=== PATIENT | male | born 1955 | race Caucasian/White ===

== ENCOUNTER 2018-08-10 12:38 | Outpatient (CLI) | payer OTHER ==
--- NOTE | 2018-08-10 13:12 | RAD ---
CHEST 2 VIEWS: Date: 08/10/18 HISTORY: Flank pain. COMPARISON: None. FINDINGS: There are linear markings in both lung bases, felt to be atelectatic change. No pneumothorax. No effu anant. IMPRESSION: 1. No acute intrathoracic abnormality. 2. Subtle lucency along the right lateral margin of the hepatic shadow. This may reflect ascites. POS: [facility]
--- NOTE | 2018-08-10 13:13 | RAD ---
THORACIC SPINE 3 VIEWS: HISTORY: Right-sided back pain. FINDINGS: There are moderate arthritic changes of the spine with somewhat prominent osteophytic change. Pedicl es are intact. There is slight scoliotic change of the spine. I do not see any signs of any acute c ompression injury. IMPRESSION: Moderate arthritic changes of the spine. POS: [facility]
--- NOTE | 2018-08-10 13:23 | CT ---
CT OF ABDOMEN AND PELVIS PERFORMED WITHOUT CONTRAST ENHANCEMENT: HISTORY: Right flank pain for the last 3 weeks. FINDINGS: The lung bases show some linear atelectasis in the right base. The liver, spleen, pancreas, and gall bladder regions appear unremarkable on this noncontrast study. Right and left adrenal glands are normal in appearance. There is a 5.6 mm hypodense lesion involving the right kidney which has CT Hounsfield unit numbers most suggestive of a cyst. There is a nonobst ructing approximately 4-5 mm lower pole calculus present. There is no dilatation of either collectin g system and no ureteral calculi. No significant periaortic or mesenteric adenopathy. There is a sm all hyperdense lesion subcentimeter in size involving the left kidney. Statistically, this is most l ikely a tiny cyst. CT OF PELVIS PERFORMED WITHOUT CONTRAST ENHANCEMENT: Sigmoid diverticulosis was noted. Prostate calcifications are present. No inflammatory process. IMPRESSION: 1. Probable tiny hemorrhagic cyst involving the left kidney and a 5.6 cm hypodense lesion involving the right kidney which is most compatible with a cyst. In addition, there is another exophytic mildl y hyperdense area involving the right kidney. It measures 1.9 cm in size. It is also most likely re lated to hemorrhagic cyst but incompletely characterized on just the noncontrast study. 2. Nonobstructing right renal calculus. No ureteral calculi are seen. 3. Sigmoid diverticulosis. 4. Tiny paraumbilical fat-containing hernia. 5. Fat-containing left inguinal hernia also incidentally noted. POS: [facility]
== END 2018-08-10 12:39 | disposition home or self-care (01) ==
LOC: BICCT 12:38
PROVIDERS: ATTEND Internal Medicine
DX: R10.9 Unspecified abdominal pain (principal); N20.0 Calculus of kidney; K57.30 Diverticulosis of large intestine without perforation or abscess without bleeding; K42.9 Umbilical hernia without obstruction or gangrene; N28.9 Disorder of kidney and ureter, unspecified; M47.814 Spondylosis without myelopathy or radiculopathy, thoracic region
CPT/HCPCS: 71046; 72070; 74176

== ENCOUNTER 2023-08-02 15:50 | Outpatient (CLI) | payer OTHER | END 2023-08-02 15:51 | disposition home or self-care (01) | LOC: SCSMRI 15:50 | PROVIDERS: ATTEND Internal Medicine | DX: M25.562 Pain in left knee (principal); G89.29 Other chronic pain; M25.462 Effusion, left knee; M25.662 Stiffness of left knee, not elsewhere classified; R29.898 Other symptoms and signs involving the musculoskeletal system; M17.12 Unilateral primary osteoarthritis, left knee; S83.242A Other tear of medial meniscus, current injury, left knee, initial encounter; M94.262 Chondromalacia, left knee ==